=== PATIENT | female | born 2000 | race Caucasian/White ===

== ENCOUNTER 2021-04-04 00:32 | Emergency (ER) | payer MEDICAID, OTHER ==
[~2021-04-04] VITALS: Ht 152 cm; Wt 45.0 kg
--- OUTSIDE RECORDS SUMMARY | 2021-04-04 00:39 | XMS REPORT | Summary of Care ---
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 Lamont KWOK PCP Encounter [facility] LIVIA Gonzalez [id number] Date(s): 03/26/21 - 03/26/21 [facility] [address] [place] [id number] [phone] Encounter Diagnosis COVID-19 virus infection (Discharge Diagnosis) - 03/26/21 Discharge Disposition: Home - 01 Attending Physician: MURALI TORRES MD Admitting Physician: MURALI TORRES MD Vital Signs Most recent to 1 oldest [Reference Range]: Temperature 98.6 DegF [96.8-99.7 DegF] (03/26/21 12:09 PM) Temp Method Oral (03/26/21 12:09 PM) Heart Rate 111 bpm (03/26/21 12:09 PM) Respiratory Rate 16 br/min [15-20 br/min] (03/26/21 12:09 PM) Blood Pressure 145/76 mmHg [90-180/50-90 mmHg] (03/26/21 12:09 PM) Problem List No Known Problems Allergies, Adverse Reactions, Alerts No Known Allergies Medications No data available for this section Results Most recent to 1 oldest [Reference Range]: Strep Screen [Not Not Detected Detected] (03/26/21 12:11 PM) Influenza A RNA [Not Not Detected Detected] (03/26/21 12:11 PM) Influenza B RNA [Not Not Detected Detected] (03/26/21 12:11 PM) SARS COV2 COVID19 Detected 1 PCR [Not Detected] *CRIT* (03/26/21 12:11 PM) Employed in No Healthcare? *NA* (03/26/21 12:11 PM) Symptomatic for Yes COVID19? *NA* (03/26/21 12:11 PM) Hospitalized? No *NA* (03/26/21 12:11 PM) First COVID19 Test? No *NA* (03/26/21 12:11 PM) Date of Onset 03/23/2021 COVID19 Symptoms *NA* (03/26/21 12:11 PM) ? No *NA* (03/26/21 12:11 PM) ICU Patient? No *NA* (03/26/21 12:11 PM) Congregate Care No Resident? *NA* (03/26/21 12:11 PM) 1Result Comment: Results called to CHERELLE Grey by [email or web address] at 03/26/2021 12:37. Results were read back. Immunizations No data available for this section Procedures No data available for this section Social History No data available for this section Functional Status No data available for this section Assessment and Plan No data available for this section Hospital Discharge Instructions No data available for this section
[2021-04-04 00:40] VITALS: BP 124/83
[2021-04-04] MEDS ORDERED: LIDOCAINE 1% INJ 20 ML 20 ML VIAL INJ STA (00:53)
[2021-04-04] MEDS ORDERED: PHENAZOPYRIDINE 100 MG (PYRIDIUM) TABLET PO STA (00:53)
[2021-04-04] MEDS ORDERED: cefTRIAXone 1,000 MG VIAL IM STA (00:53)
--- NOTE | 2021-04-04 01:00 | ED GU-Female ---
General Chief Complaint: - Reproductive Stated Complaint: UTI SYMPTOMS Source: patient History of Present Illness Date Seen by Provider: Apr 04, 2021 Time Seen by Provider: 00:37 Initial Comments 20 yo female presenting with complaints of blood in urine tonight and using tampons for last 2 weeks due to having some bleeding. Tonight was the first time she noticed blood on toilet paper. This is similar to symptoms she had a few months ago when she had kidney infection from letting UTI go on too long. At that time she was treated in [facility]. She denies nausea, vomiting, fever, chills, diarrhea. She has some pain over the bladder and it is worse when she goes to urinate. she has Mirena IUD for last 6 months or so and usually does not spot or bleed. Severity/Quality: moderate, burning, cramping Location: suprapubic Radiation: suprapubic Prior Genitourinary Problems: similar symptoms Sexual [place] History: less than 2 months ago Associated Symptoms: No diaphoresis; dysuria; No fever/chills, No loss of bladder control, No lower back pain, No lumps, No mass, No nausea/vomiting, No nocturia, No polyuria, No swelling, No syncope; urinary frequency Allergies and Home Medications Allergies Coded Allergies: No Known Drug Allergies (Unverified , 04/04/21) Patient Home Medication List Home Medication List Reviewed: Yes Nitrofurantoin Macrocrystal (Nitrofurantoin) 100 Mg Capsule, 100 MG PO BID Prescribed by: HADLEY HAAS on 04/04/21106 Phenazopyridine HCl (Urinary Pain Relief) 95 Mg Tablet, 95 MG PO TID Prescribed by: HADLEY HAAS on 04/04/21106 Review of Systems Review of Systems Constitutional: No chills, No dizziness, No fever EENTM: no symptoms reported Respiratory: no symptoms reported Cardiovascular: no symptoms reported Gastrointestinal: no symptoms reported Genitourinary: see HPI : No Musculoskeletal: no symptoms reported Skin: no symptoms reported Psychiatric/Neurological: No Symptoms Reported Past Cjgixjs-Ihuczl-Vcsstw Hx Patient Social History Tobacco Use?: No Substance use?: No Pt feels they are or have been: No Physical Exam Vital Signs Vital Signs - First Documented 04/04/21 00:40 Temp 36.5 Pulse 124 Resp 16 B/P (MAP) 124/83 (97) Pulse Ox 98 O2 Delivery Room Air Capillary Refill : Height, Weight, BMI Height: '" Weight: lbs. oz. kg; BMI Method: General Appearance: thin, other (anxious) HEENT: PERRL/EOMI Neck: non-tender, full range of motion, supple, normal inspection Cardiovascular: normal peripheral pulses, regular rate, rhythm Respiratory: chest non-tender, lungs clear, normal breath sounds Gastrointestinal: normal bowel sounds, soft, no pulsatile mass; No distended, No guarding, No rebound; tenderness (suprapubic) Back: No CVA tenderness (R); CVA tenderness (L) (mild with palpation) Extremities: normal range of motion, non-tender, normal capillary refill Neurologic/Psychiatric: alert, oriented x 3 Skin: normal color, warm/dry Progress/Results/Core Measures Suspected Sepsis SIRS Temperature: Pulse: Respiratory Rate: Blood Pressure / Mean: Results/Orders Lab Results Laboratory Tests Test 04/04/21 00:42 Range/Units Urine Color BROWN H Urine Clarity TURBID Urine pH 6.5 5-9 Urine Specific [place] 1.025 H 1.016-1.022 Urine Protein 2+ H NEGATIVE Urine Glucose (UA) NEGATIVE NEGATIVE Urine Ketones TRACE H NEGATIVE Urine Nitrite POSITIVE H NEGATIVE Urine Bilirubin 2+ H NEGATIVE Urine Urobilinogen 1.0 < = 1.0 MG/DL Urine Leukocyte Esterase 1+ H NEGATIVE Urine RBC (Auto) 3+ H NEGATIVE Urine RBC >100 H /HPF Urine WBC 50-100 H /HPF Urine Squamous Epithelial Cells 0-2 /HPF Urine Crystals NONE /LPF Urine Bacteria FEW H /HPF Urine Casts NONE /LPF Urine Mucus SMALL H /LPF Urine Culture Indicated YES My Orders Orders - HADLEY HAAS MD Ua Culture If Indicated (04/04/21 00:38) Urine Bedside (04/04/21 00:38) Ceftriaxone (Rocephin) (04/04/21 00:53) Lidocaine 1% Inj 20 Ml (Xylocaine 1% Inj (04/04/21 00:53) Phenazopyridine Tablet (Pyridium Tablet) (04/04/21 00:53) Urine Culture (04/04/21 00:42) Vital Signs/I&O 04/04/21 00:40 Temp 36.5 Pulse 124 Resp 16 B/P (MAP) 124/83 (97) Pulse Ox 98 O2 Delivery Room Air Capillary Refill : Progress Note : Progress Note obtain UA and send that to lab. Bedside test run and was negative. Based off of symptoms will treat UTI with Pyridium for symptoms and Rocephin for first dose of antibiotic IM. Follow up with Macrobid since she was just on Keflex 4 times a day and admits she could not remember if she took all her doses from the 03/05 episode of symptoms. [employer] on follow up and return precautions Departure Impression Primary Impression: Cystitis with hematuria Disposition: HOME, SELF-CARE Condition: Stable Departure-Patient Inst. Decision time for Depature: 01:03 Referrals: WILLIAM CRUMP DO, (DDU) (PCP/Family) Primary Care Physician Patient Instructions: Blood in Urine (Hematuria), Adult ED, Urinary Tract Infection, Adult ED Add. Discharge Instructions: Take the full course of antibiotics to treat urine infection. Drink plenty of water and cranberry juice to help flush out the infection and stay hydrated Check back with clinic or seek medical care if you have fever over 101 F or uncontrolled vomiting. All discharge instructions reviewed with patient and/or family. Voiced understanding. Scripts Phenazopyridine HCl (Urinary Pain Relief) 95 Mg Tablet 95 MG PO TID for UTI for 2 Days, #6 TAB 0 Refills Prov: HADLEY HAAS MD 04/04/21 Nitrofurantoin Macrocrystal (Nitrofurantoin) 100 Mg Capsule 100 MG PO BID for UTI for 7 Days, #14 CAP 0 Refills Prov: HADLEY HAAS MD 04/04/21 HADLEY HAAS MD Apr 04, 2021 01:00
[2021-04-04 01:03] LABS: CLARITY,URINE TURBID; COLOR,URINE BROWN; GLUCOSE, URINE (UA) NEGATIVE (NEGATIVE); KETONES,URINE TRACE (NEGATIVE); LEUKOCYTE ESTERASE ,URINE 1+ (NEGATIVE); NITRITE,URINE POSITIVE (NEGATIVE); PH,URINE 6.5 (5-9); PROTEIN,URINE 2+ (NEGATIVE)
[2021-04-04] MEDS ORDERED: NITR100C PO (01:07)
[2021-04-04] MEDS ORDERED: PHEN95TA PO (01:07)
[2021-04-04 01:08] LABS: WBC,URINE 50-100 /HPF
[2021-04-04 01:09] LABS: RBC,URINE >100 /HPF
[2021-04-04 01:13] LABS: BACTERIA,URINE FEW /HPF; BILIRUBIN,URINE 2+ (NEGATIVE); SQUAMOUS EPITHELIAL CELL,UR 0-2 /HPF
== END 2021-04-04 01:16 | disposition home or self-care (01) ==
LOC: ER FS 00:37
DX: N30.91 Cystitis, unspecified with hematuria (principal)
CPT/HCPCS: 81000; 84703; 87088; 99284

== ENCOUNTER 2021-05-12 23:11 | Emergency (ER) | payer MEDICAID ==
[~2021-05-12] VITALS: Ht 157.4 cm; Wt 40.9 kg
[~2021-05-12 23:11] MED LIST: NITR100C PO; PHEN95TA PO
[2021-05-12 23:15] VITALS: BP 157/80
--- NOTE | 2021-05-12 23:31 | ED GU-Female ---
General Chief Complaint: - Reproductive Stated Complaint: VAGINAL BLEEDING;ABD CRAMPING Source: patient Exam Limitations: no limitations History of Present Illness Date Seen by Provider: May 12, 2021 Time Seen by Provider: 23:25 Initial Comments 20-year-old female presents with intermittent brown vaginal spotting for the past 2 days. Denies any abdominal pain, but intermittent pelvic cramps have been occurring. Denies any nausea or vomiting, fever or chills. Denies dysuria or hematuria. Patient has an IUD that was inserted several months ago and has not been having regular periods since then. Has not followed up with her provider from the clinic since getting it inserted. Patient has done 6 home test all negative. Denies vaginal discharge or concern of STD. Allergies and Home Medications Allergies Coded Allergies: No Known Drug Allergies (Unverified , 04/04/21) Patient Home Medication List Home Medication List Reviewed: Yes Nitrofurantoin Macrocrystal (Nitrofurantoin) 100 Mg Capsule, 100 MG PO BID Prescribed by: HADLEY HAAS on 04/04/21106 Phenazopyridine HCl (Urinary Pain Relief) 95 Mg Tablet, 95 MG PO TID Prescribed by: HADLEY HAAS on 04/04/21106 Review of Systems Review of Systems Constitutional: No fever, No malaise, No weakness Respiratory: No cough, No short of breath Cardiovascular: No chest pain, No edema, No palpitations, No syncope Gastrointestinal: No abdominal pain, No constipation, No diarrhea, No loss of appetite, No nausea, No vomiting Genitourinary: denies burning, denies discharge, denies dysuria, denies frequency, denies flank pain, denies hematuria, denies pain, denies urgency Musculoskeletal: No back pain, No joint pain Skin: No change in color, No rash Physical Exam Vital Signs Vital Signs - First Documented 05/12/21 23:15 Temp 36.9 Pulse 114 Resp 14 B/P (MAP) 157/80 (105) Pulse Ox 100 O2 Delivery Room Air Capillary Refill : Height, Weight, BMI Height: '" Weight: lbs. oz. kg; 19.00 BMI Method: General Appearance: WD/WN, no apparent distress Gastrointestinal: non tender, soft Back: normal inspection, no CVA tenderness, no vertebral tenderness Neurologic/Psychiatric: alert, normal mood/affect Skin: normal color, warm/dry Progress/Results/Core Measures Suspected Sepsis SIRS Temperature: Pulse: Respiratory Rate: Blood Pressure / Mean: Results/Orders Vital Signs/I&O 05/12/21 23:15 Temp 36.9 Pulse 114 Resp 14 B/P (MAP) 157/80 (105) Pulse Ox 100 O2 Delivery Room Air Capillary Refill : Progress Note : Progress Note NEGATIVE test done by ER nurse offered pelvic exam, pt declines Departure Impression Primary Impression: Breakthrough bleeding associated with intrauterine device (IUD) Disposition: HOME, SELF-CARE Condition: Stable Departure-Patient Inst. Decision time for Depature: 23:30 Referrals: WILLIAM CRUMP DO, ([facility]U) (PCP/Family) Primary Care Physician Patient Instructions: Intrauterine Devices (IUD), Bleeding Between Periods Add. Discharge Instructions: Follow up with your PCP or the clinic where you got your IUD inserted for any further questions or concerns about breakthrough bleeding. All discharge instructions reviewed with patient and/or family. Voiced understanding. YANN BURTON DO May 12, 2021 23:31
== END 2021-05-12 23:32 | disposition home or self-care (01) ==
LOC: EDUNIT# 23:11 → ER FS 23:14
DX: T83.39XA Other mechanical complication of intrauterine contraceptive device, initial encounter (principal); Z32.02 Encounter for pregnancy test, result negative
CPT/HCPCS: 99281

== ENCOUNTER 2021-08-17 07:33 | Emergency (ER) | payer MEDICAID ==
[~2021-08-17] VITALS: Ht 157 cm; Wt 39.0 kg
--- NOTE | 2021-08-17 07:49 | ED GU-Female ---
General Stated Complaint: URINARY PAIN History of Present Illness Date Seen by Provider: Aug 17, 2021 Time Seen by Provider: 07:47 Initial Comments 21-year-old female presents with dysuria and urinary frequency. She reports is been going on for 2 weeks. She reports that now she is having a hard time even holding her bladder. She denies any flank pain. She reports she has not had time to get into her primary care provider who is up in another town. Patient denies any fever, chills, nausea or vomiting. Patient reports her last menstrual period was at the beginning of this month. Allergies and Home Medications Allergies Coded Allergies: No Known Drug Allergies (Unverified , 04/04/21) Patient Home Medication List Home Medication List Reviewed: Yes Nitrofurantoin Macrocrystal (Nitrofurantoin) 100 Mg Capsule, 100 MG PO BID Prescribed by: HADLEY HAAS on 04/04/21106 Phenazopyridine HCl (Urinary Pain Relief) 95 Mg Tablet, 95 MG PO TID Prescribed by: HADLEY HAAS on 04/04/21106 Review of Systems Review of Systems Constitutional: No chills, No fever Respiratory: No cough, No short of breath Cardiovascular: No chest pain, No palpitations Gastrointestinal: No abdominal pain, No nausea, No vomiting Genitourinary: burning, dysuria, frequency, urgency : No Musculoskeletal: no symptoms reported Skin: no symptoms reported Psychiatric/Neurological: No Symptoms Reported Endocrine: No Symptoms Reported Hematologic/Lymphatic: No Symptoms Reported Physical Exam Vital Signs Vital Signs - First Documented 08/17/21 08:01 Temp 36.4 Pulse 101 Resp 16 B/P (MAP) 119/80 (93) O2 Delivery Room Air Capillary Refill : Height, Weight, BMI Height: '" Weight: lbs. oz. kg; 16.00 BMI Method: General Appearance: WD/WN, no apparent distress Neck: full range of motion Cardiovascular: normal peripheral pulses, regular rate, rhythm Respiratory: no respiratory distress, no accessory muscle use Gastrointestinal: non tender, soft Neurologic/Psychiatric: alert, normal mood/affect, oriented x 3 Skin: normal color, warm/dry Progress/Results/Core Measures Suspected Sepsis SIRS Temperature: Pulse: Respiratory Rate: Blood Pressure / Mean: Results/Orders Lab Results Laboratory Tests Test 08/17/21 07:39 Range/Units Urine Color YELLOW Urine Clarity TURBID Urine pH 6.0 5-9 Urine Specific [place] >=1.030 1.016-1.022 Urine Protein 1+ H NEGATIVE Urine Glucose (UA) NEGATIVE NEGATIVE Urine Ketones NEGATIVE NEGATIVE Urine Nitrite POSITIVE H NEGATIVE Urine Bilirubin 1+ H NEGATIVE Urine Urobilinogen 0.2 < = 1.0 MG/DL Urine Leukocyte Esterase 1+ H NEGATIVE Urine RBC (Auto) TRACE-I H NEGATIVE Urine RBC NONE /HPF Urine WBC >100 H /HPF Urine Squamous Epithelial Cells 0-2 /HPF Urine Crystals NONE /LPF Urine Bacteria MODERATE H /HPF Urine Casts NONE /LPF Urine Mucus LARGE H /LPF Urine Culture Indicated YES Urine Test NEGATIVE NEGATIVE My Orders Orders - IRMA NICHOLS DO Hcg,Qualitative Urine (08/17/21 07:46) Ua Culture If Indicated (08/17/21 07:46) Urine Culture (08/17/21 07:39) Vital Signs/I&O 08/17/21 08:01 Temp 36.4 Pulse 101 Resp 16 B/P (MAP) 119/80 (93) O2 Delivery Room Air Capillary Refill : Progress Note : Progress Note Patient symptoms consistent with a urinary tract infection. I will treat her with Bactrim. She was discharged home in stable condition. Departure Impression Primary Impression: Urinary tract infection Qualified Codes: N30.00 - Acute cystitis without hematuria Disposition: 01 HOME, SELF-CARE Condition: Stable Departure-Patient Inst. Referrals: NO,LOCAL PHYSICIAN (PCP/Family) Primary Care Physician Patient Instructions: Urinary Tract Infection, Adult (DC) Scripts Sulfamethoxazole/Trimethoprim (Bactrim Ds Tablet) 1 Each Tablet 1 EACH PO BID, #14 TAB Prov: IRMA NICHOLS DO 08/17/21 IRMA NICHOLS DO Aug 17, 2021 07:49
[2021-08-17 08:01] VITALS: BP 119/80
[2021-08-17 08:09] LABS: CLARITY,URINE TURBID; COLOR,URINE YELLOW; GLUCOSE, URINE (UA) NEGATIVE (NEGATIVE); KETONES,URINE NEGATIVE (NEGATIVE); LEUKOCYTE ESTERASE ,URINE 1+ (NEGATIVE); NITRITE,URINE POSITIVE (NEGATIVE); PROTEIN,URINE 1+ (NEGATIVE)
[2021-08-17 08:29] LABS: WBC,URINE >100 /HPF
[2021-08-17 08:30] LABS: BACTERIA,URINE MODERATE /HPF; SQUAMOUS EPITHELIAL CELL,UR 0-2 /HPF
[2021-08-17 08:31] LABS: BILIRUBIN,URINE 1+ (NEGATIVE)
[2021-08-17] MEDS ORDERED: SULF1TAB38 PO (08:58)
== END 2021-08-17 09:08 | disposition home or self-care (01) ==
LOC: EDUNIT# 07:33 → ER FS 07:34
DX: N39.0 Urinary tract infection, site not specified (principal); Z32.02 Encounter for pregnancy test, result negative
CPT/HCPCS: 81000; 84703; 87077; 87088; 87186; 99281

== ENCOUNTER 2021-12-09 10:35 | Emergency (ER) | payer MEDICAID ==
[~2021-12-09] VITALS: Ht 157 cm; Wt 42.0 kg
[~2021-12-09 10:35] MED LIST changes: +SULF1TAB38 PO
[2021-12-09] MEDS ORDERED: HYDROcodone/APAP 5 MG/325 MG (LORTAB) TAB PO STA (10:47)
[2021-12-09] MEDS ORDERED: ONDANSETRON 4 MG (ZOFRAN) ORAL DISSOLVE TAB PO STA (10:47)
[2021-12-09] MEDS ORDERED: CYCLOBENZAPRINE 10 MG (FLEXERIL) TAB PO STA (10:47)
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
[2021-12-09 10:58] LABS: BILIRUBIN,URINE NEGATIVE (NEGATIVE); COLOR,URINE YELLOW; GLUCOSE, URINE (UA) NEGATIVE (NEGATIVE); KETONES,URINE NEGATIVE (NEGATIVE); LEUKOCYTE ESTERASE ,URINE NEGATIVE (NEGATIVE); NITRITE,URINE NEGATIVE (NEGATIVE); PH,URINE 6.5 (5-9); PROTEIN,URINE NEGATIVE (NEGATIVE)
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
[2021-12-09 11:47] LABS: CLARITY,URINE CLOUDY
[2021-12-09 11:53] LABS: BACTERIA,URINE LARGE /HPF
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
[2021-12-09] MEDS ORDERED: ACHD5005 PO (12:13)
[2021-12-09] MEDS ORDERED: IBUP-1773 PO (12:13)
[2021-12-09] MEDS ORDERED: CYCL10TA25 PO (12:13)
[2021-12-09] MEDS ORDERED: NITR-65 PO (12:15)
[2021-12-09 12:26] VITALS: BP 105/51
[2021-12-09 12:30] LABS: URINE OTHER NO /HPF
[2021-12-09 13:02] LABS: TYROSINE CRYSTAL,URINE LARGE /LPF
== END 2021-12-09 12:25 | disposition home or self-care (01) ==
LOC: EDUNIT# 10:35 → ER FS 10:35
DX: S09.90XA Unspecified injury of head, initial encounter (principal); S29.012A Strain of muscle and tendon of back wall of thorax, initial encounter; N30.00 Acute cystitis without hematuria; M54.2 Cervicalgia; V47.5XXA Car driver injured in collision with fixed or stationary object in traffic accident, initial encounter; Y92.410 Unspecified street and highway as the place of occurrence of the external cause
CPT/HCPCS: 70450; 70486; 71250; 72125; 81000; 84703; 87088